=== PATIENT | female | born 1990 | race Two or more races ===

== ENCOUNTER 2022-07-26 10:18 | Outpatient (CLI) | payer OTHER | END 2022-07-26 11:39 | disposition home or self-care (01) | LOC: NST 10:18 | PROVIDERS: ATTEND Obstetrics & Gynecology Gynecology | DX: Z34.83 Encounter for supervision of other normal pregnancy, third trimester (principal) ==

== ENCOUNTER 2022-07-30 10:20 | Inpatient (IN) | payer OTHER ==
[~2022-07-30] VITALS: Ht 165.1 cm; Wt 95.7 kg
[2022-07-30] MEDS ORDERED: PRENATAL TABLE1 EAC4 PO (11:17)
[2022-07-30] MEDS ORDERED: FOLIC ACID1 MG (11:17)
[2022-07-30] MEDS ORDERED: IRON18 MG PO (11:18)
[2022-07-30] MEDS ORDERED: ADULT LOW DOSE81 M1 PO (11:18)
== END 2022-08-01 11:09 | disposition home or self-care (01) | DRG 807 ==
LOC: LDR 10:20 → OB/GYN 15:21
PROVIDERS: ADMIT Obstetrics & Gynecology; ATTEND Obstetrics & Gynecology
PROC: 10E0XZZ Delivery of Products of Conception, External Approach (ICD-10-PCS; principal; 2022-07-30)
PROC: 4A1HXCZ Monitoring of Products of Conception, Cardiac Rate, External Approach (ICD-10-PCS; 2022-07-30)
DX: O99.824 Streptococcus B carrier state complicating childbirth (principal); Z37.0 Single live birth; Z3A.39 39 weeks gestation of pregnancy; Z20.822 Contact with and (suspected) exposure to COVID-19

== ENCOUNTER → 2024-10-10 | Emergency (ER) | payer OTHER ==
[~2024-10-10] VITALS: Ht 165.1 cm; Wt 87.1 kg
[~2024-10-10] MED LIST: ADULT LOW DOSE81 M1 PO; FOLIC ACID1 MG; IRON18 MG PO; PRENATAL TABLE1 EAC4 PO
== END | disposition home or self-care (01) ==
LOC: ER 16:25
DX: O26.892 Other specified pregnancy related conditions, second trimester (principal); Z3A.20 20 weeks gestation of pregnancy; T14.8XXA Other injury of unspecified body region, initial encounter; W18.39XA Other fall on same level, initial encounter; Y93.89 Activity, other specified; Y92.89 Other specified places as the place of occurrence of the external cause; Y99.9 Unspecified external cause status; Z88.8 Allergy status to other drugs, medicaments and biological substances

== ENCOUNTER 2025-01-21 01:17 | Emergency (ER) | payer OTHER ==
[~2025-01-21] VITALS: Ht 165.1 cm; Wt 95.3 kg
[2025-01-21] MEDS ORDERED: DIPHENHYDRAMINE HCL 50 MG/ML VIAL 1ML IV STA (02:24)
[2025-01-21] MEDS ORDERED: METHYLPREDNISOLONE SOD SUCC 125 MG VIAL IV STA (02:24)
[2025-01-21] MEDS ORDERED: METHYLPREDNISOLONE SOD SUCC 125 MG VIAL ONE ×2 (02:31)
[2025-01-21] MEDS ORDERED: DIPHENHYDRAMINE HCL 50 MG/ML VIAL 1ML ONE (02:31)
[2025-01-21] MEDS ORDERED: ZYRTEC10 M3 PO (04:27)
[2025-01-21] MEDS ORDERED: FLONASE16 GM NASAL (04:27)
== END 2025-01-21 04:40 ==
LOC: ER 01:18
DX: O26.893 Other specified pregnancy related conditions, third trimester (principal); R09.81 Nasal congestion; Z3A.35 35 weeks gestation of pregnancy; Z88.8 Allergy status to other drugs, medicaments and biological substances

== ENCOUNTER 2025-02-18 13:00 | Inpatient (IN) | payer OTHER ==
[~2025-02-18] VITALS: Ht 165.1 cm; Wt 95.3 kg
[~2025-02-18 13:00] MED LIST changes: +FLONASE16 GM NASAL; +ZYRTEC10 M3 PO
[2025-02-23 10:36] VITALS: BP 131/81; BP 134/81
[2025-02-23 11:38] LABS: BASO % 0.2 % (0.1-1.2); EOS # 0.05 (0.04-0.54); EOS % 0.5 % (0.7-7.0); LYMPH # 0.75 (1.18-3.74); LYMPH % 6.9 % (19.3-53.1); MEAN PLATELET VOLUME 11.10 fl (9.4-12.4); MONO # 0.71 (0.24-0.82); MONO % 6.5 % (4.7-12.5); NEUT # 9.27 (1.56-6.13); NEUT % 85.3 % (34.0-71.1); RED CELL DISTRIBUTION WIDTH 14.0 % (11.6-14.4)
[2025-02-23] MEDS ORDERED: ERYTHROMYCIN BASE OPHT 1GM EACH TUBE OP ONE ×2 (11:42→14:00)
[2025-02-23] MEDS ORDERED: OXYTOCIN 20 UNITS/1000ML RL PIGGYBAG IV ONE (11:42)
[2025-02-23] MEDS ORDERED: LIDOCAINE HCL 1% 10ML VIAL ONE (11:42)
[2025-02-23] MEDS ORDERED: CHLORHEXIDINE GLUCONATE 120 ML BOTTLE TOP ONE (11:42)
[2025-02-23 12:08] LABS: INR 0.94
[2025-02-23] MEDS ORDERED: RINGERS SOLUTION,LACTATED 1,000 ML IV SCH (12:15)
[2025-02-23 12:52] LABS: ALT/SGPT 19.0 U/L (12-78); AST/SGOT 15.0 U/L (15-37); BILIRUBIN TOTAL 0.72 mg/dL (0.3-1.2); BUN CREA RATIO 12.0 (7.0-25.0); CREATININE SERUM 0.52 mg/dL (0.55-1.02); GFR 134.98; GLOBULINA 3.4 G/DL (2.4-3.5); GLUCOSE FASTING 84.0 mg/dL (65-100); OSMOLALITY SERUM 274.0 MOSM/KG (275-295)
[2025-02-23 13:30] VITALS: BP 129/76
[2025-02-23] MEDS ORDERED: OXYTOCIN 1,000 ML IV SCH (13:30)
[2025-02-23] MEDS ORDERED: CHLORHEXIDINE GLUCONATE 120 ML BOTTLE TOP SCH (13:30)
[2025-02-23 13:45] VITALS: BP 137/78
[2025-02-23 14:00] VITALS: BP 113/77
[2025-02-23 14:42] VITALS: BP 105/56
[2025-02-23 22:15] VITALS: BP 98/62
[2025-02-24 01:26] VITALS: BP 109/66
[2025-02-24 03:19] LABS: BASO % 0.1 % (0.1-1.2); EOS # 0.05 (0.04-0.54); EOS % 0.4 % (0.7-7.0); LYMPH # 1.33 (1.18-3.74); LYMPH % 9.4 % (19.3-53.1); MEAN PLATELET VOLUME 11.60 fl (9.4-12.4); MONO # 0.73 (0.24-0.82); MONO % 5.1 % (4.7-12.5); NEUT # 11.98 (1.56-6.13); NEUT % 84.3 % (34.0-71.1); RED CELL DISTRIBUTION WIDTH 14.0 % (11.6-14.4)
[2025-02-24 08:00] VITALS: BP 97/62
[2025-02-24 16:41] VITALS: BP 108/71
[2025-02-25] VITALS: BP 117/73
[2025-02-25 08:00] VITALS: BP 108/75
== END 2025-02-25 14:55 | disposition home or self-care (01) | DRG 807 ==
LOC: LDR 02-23 10:34 → OB/GYN 02-23 13:58 → LDR 02-25 13:00 → OB/GYN 02-25 14:55
PROVIDERS: Obstetrics & Gynecology; ADMIT Obstetrics & Gynecology Maternal & Fetal Medicine; ATTEND Obstetrics & Gynecology Maternal & Fetal Medicine
PROC: 10E0XZZ Delivery of Products of Conception, External Approach (ICD-10-PCS; principal; 2025-02-23)
PROC: 4A1HXCZ Monitoring of Products of Conception, Cardiac Rate, External Approach (ICD-10-PCS; 2025-02-23)
DX: O80 Encounter for full-term uncomplicated delivery (principal); Z37.0 Single live birth; Z3A.39 39 weeks gestation of pregnancy

== ENCOUNTER 2025-02-18 15:12 | Outpatient (CLI) | payer OTHER | END 2025-02-18 16:39 | disposition home or self-care (01) | LOC: NST 15:12 | PROVIDERS: ATTEND Obstetrics & Gynecology | DX: Z34.83 Encounter for supervision of other normal pregnancy, third trimester (principal) ==